=== PATIENT | male | born 1995 | race Caucasian/White ===

== ENCOUNTER 2017-11-01 11:10 | Emergency (ER) | payer OTHER ==
[~2017-11-01] VITALS: Ht 182.9 cm; Wt 86.2 kg
[2017-11-01] MEDS ORDERED: Bacitracin Oint UD TOPIC ONE (12:15)
[2017-11-01] MEDS ORDERED: IBUPROFEN600 MG ORAL (12:17)
[2017-11-01] MEDS ORDERED: AFRIN NASAL SPR30 ML NASAL (12:17)
--- NOTE | 2017-11-01 12:25 | Emergency Room Report ---
History of Present Illness General Chief Complaint: Head, Face, Neck Trauma Source: Patient Present Illness HPI The patient is a 22-year-old male presenting for a facial injury. He states that he ran into a tree 2 days prior. He is now complaining of nasal pain described as a 10 out of 10 dull ache. Does not radiate. He denies loss of consciousness at the time. He denies any other injury. He did notice blood from the nose which has now stopped. He denies any other symptoms including N, V, F, SOB, dizziness Allergies: Coded Allergies: No Known Allergies (Unverified , 10/23/16) Patient History Past Medical History: see triage record Pertinent Family History: none Reviewed Nursing Documentation: PMH: Agreed, PSxH: Agreed Nursing Documentation-PMH Past Medical History: No Stated History Review of Systems All Other Systems: negative except mentioned in HPI Physical Exam Vital Signs Date Time Temp Pulse Resp B/P (MAP) Pulse Ox O2 Delivery O2 Flow Rate FiO2 11/01/17 11:24 97.9 85 16 124/60 99 Room Air Sp02 EP Interpretation: reviewed, normal General Appearance: no apparent distress, alert, GCS 15, non-toxic Head: normocephalic, atraumatic Eyes: bilateral eye normal inspection, bilateral eye PERRL ENT: other - Dried blood from L nose Neck: full range of motion, no bony tend, supple/symm/no masses Respiratory: chest non-tender, lungs clear, normal breath sounds, speaking full sentences Musculoskeletal: tender - nasal bridge Neurologic: alert, oriented x3, responsive, motor strength/tone normal, sensory intact, speech normal Psychiatric: judgement/insight normal, memory normal, mood/affect normal, no suicidal/homicidal ideation Skin: abrasions - mid nose Lymphatic: no adenopathy Medical Decision Making PA Attestation Dr. Leone is my supervising physician. Patient management was discussed with my supervising physician Diagnostic Impression: Primary Impression: Nasal abrasion Qualified Codes: S00.31XA - Abrasion of nose, initial encounter ER Course The patient is a 22-year-old male presenting for a facial injury. Ddx considered include but not limited to sprain/strain, fracture, contusion, septal hematoma, abrasion, among others PE: NAD HEENT: Nose is midline. No edema. No ecchymosis. There is an abrasion to the mid nose. No bleeding. No septal hematoma. There is some dried blood in the left nostril. No raccoon eyes or Yuen sign. Otherwise exam unremarkable The wound is cleaned and bacitracin applied with dressing. He is discharged with prescription for pain medication and 3 days of Afrin. ER precautions are given Last Vital Signs Date Time Temp Pulse Resp B/P (MAP) Pulse Ox O2 Delivery O2 Flow Rate FiO2 11/01/17 11:24 97.9 85 16 124/60 99 Room Air Status: improved Disposition: HOME, SELF-CARE Condition: Improved Scripts Oxymetazoline HCl (Afrin) 15 Ml [place] 2 SPRAYS NASAL TWICE A DAY for 3 Days, #30 SPRAY Prov: ESTELLE PAGE 11/01/17 Ibuprofen* (MOTRIN*) 600 Mg Tablet 600 MG ORAL Q8H Y for For Pain, #30 TAB 0 Refills Prov: ESTELLE PAGE 11/01/17 Patient Instructions: Abrasion, Nosebleed Additional Instructions: I discussed my findings with the patient. All questions and concerns have been answered. Treatment and medication compliance have been addressed. I advised the patient that they need to follow up with PMD in 3-5 days. Return to ED if symptoms worsen, new symptoms arise, or if needed for any reason. Patient verbalized understanding of discharge instructions. ESTELLE PAGE Nov 01, 2017 12:25
[2017-11-01 13:02] VITALS: BP 122/60
== END 2017-11-01 13:10 | disposition home or self-care (01) ==
LOC: EDBD 11:10 → EMR 12:01
DX: S00.31XA Abrasion of nose, initial encounter (principal); W22.09XA Striking against other stationary object, initial encounter; Y92.9 Unspecified place or not applicable
CPT/HCPCS: 99283